=== PATIENT | male | born 1970 | race Caucasian/White ===

== ENCOUNTER 2017-06-18 00:19 | Emergency (ER) | payer MEDICAID ==
[2017-06-18] MEDS ORDERED: MVI, Adult with Vitamin K 10 ML, Thiamine 100 MG, Folic Acid 1 MG, Magnesium Sulfate 3 ... IV SCH ×5 (00:45)
[2017-06-18] MEDS ORDERED: Magnesium Sulfate (4.06 MEQ/ML) 1 GM/2 ML SDV ONE (00:51)
[2017-06-18] MEDS: LORazepam 2 MG/ML MDV IVPUSH PRN ×2 (01:30→06:33)
[2017-06-18] MEDS ORDERED: Sodium Chloride 0.9% 1,000 ML IV SCH (04:30)
--- NOTE | 2017-06-18 06:14 | EDM.PDOC ---
ED HPI GENERAL MEDICAL PROBLEM - General Chief Complaint: Drug or Alcohol Abuse Stated Complaint: ETOH intoxication Time Seen by Provider: 06/18/17 00:25 Source of Information: Reports: Patient, EMS History Limitations: Reports: Altered Mental Status - History of Present Illness INITIAL COMMENTS - FREE TEXT/NARRATIVE: Patient is a 47 year old man who is a chronic alcoholic who has had DT's in the past. He has been drinking non stop for the last 5 weeks. He is tremoring and is halucinating and he is afraid he may go into the DT's. He has no pain but he is throwing up some coffee ground emesis at times today. He is very drunk, otherwise and is not saying much else. Onset: Unknown/Unsure Duration: Getting Worse Location: Reports: Generalized Quality: Reports: Other (Withdrawing from alcohol.) Severity: Severe Improves with: Reports: None Worsens with: Reports: None Context: Reports: Other (Chronic Alcoholism and history or DT's.) Associated Symptoms: Reports: Confusion, Nausea/Vomiting - Related Data Allergies Allergy/AdvReac Type Severity Reaction Status Date / Time No Known Allergies Allergy Verified 06/18/17 02:25 Home Meds: Home Meds Disulfiram [Disulfiram] 250 mg PO DAILY 06/18/17 [History] FLUoxetine [PROzac] 20 mg PO BID 06/18/17 [History] Naltrexone [Naltrexone] 50 mg PO DAILY 06/18/17 [History] Sucralfate 1 gm PO ACBREAKFASTANDBED 06/18/17 [History] busPIRone HCl [Buspirone HCl] 10 mg PO BID 06/18/17 [History] Past Medical History Respiratory History: Reports: COPD Gastrointestinal History: Reports: GERD, Other (See Below) Other Gastrointestinal History: Chronic esophagael bleed. Psychiatric History: Reports: Addiction, Anxiety, Depression, Other (See Below) Other Psychiatric History: ETOH abuse - Past Surgical History GI Surgical History: Reports: Other (See Below) Other GI Surgeries/Procedures: Splenectomy in Social & Family History - Family History Family Medical History: Noncontributory - Tobacco Use Smoking Status *Q: Unknown Ever Smoked Second Hand Smoke Exposure: No - Caffeine Use Caffeine Use: Reports: Soda - Alcohol Use Days Per Week of Alcohol Use: 7 Number of Drinks Per Day: 12 Total Drinks Per Week: 84 Date of Last Drink: 06/17/17 - Recreational Drug Use Recreational Drug Use: No ED ROS GENERAL - Review of Systems Review Of Systems: See Below Constitutional: Reports: Other (Intoxicated with alcohol.) HEENT: Reports: Nosebleed Respiratory: Reports: No Symptoms Cardiovascular: Reports: No Symptoms Endocrine: Reports: No Symptoms GI/Abdominal: Reports: Hematemesis : Reports: No Symptoms Musculoskeletal: Reports: No Symptoms Skin: Reports: No Symptoms Neurological: Reports: Confusion, Tremors Psychiatric: Reports: Agitation, Anxiety, Confusion, Hallucinations Hematologic/Lymphatic: Reports: No Symptoms Immunologic: Reports: No Symptoms - Physical Exam Exam: See Below Exam Limited By: Altered Mental Status General Appearance: Anxious, Moderate Distress Eye Exam: Bilateral Eye: Normal Fundi, Normal Inspection, PERRL Ears: Normal External Exam, Normal Canal, Hearing Grossly Normal, Normal TMs Nose: Other (Dry blood on nostrils on admission.) Head Exam: Atraumatic, Normocephalic Neck: Normal Inspection, Supple, Non-Tender, Full Range of Motion Respiratory/Chest: No Respiratory Distress, Lungs Clear, Normal Breath Sounds, No Accessory Muscle Use, Chest Non-Tender Cardiovascular: Normal Peripheral Pulses, Regular Rate, Rhythm, No Edema, No Gallop, No JVD, No Murmur, No Rub GI/Abdominal: Normal Bowel Sounds, Soft, Non-Tender, No Organomegaly, No Distention, No Abnormal Bruit, No Mass Neuro Exam (Abbreviated): Inattentive, Confused, Disoriented Extremities: Normal Inspection, Normal Range of Motion, Non-Tender, No Pedal Edema, Normal Capillary Refill Psychiatric: Anxious Skin Exam: Warm, Dry, Intact, Normal Color, No Rash Course - Vital Signs Text/Narrative:: Uneventful ED course. He was managed on the CIWA protocol and with Lorazepam his tremors went away. An ICU bed became availabe in [facility] and he was transfered there for further treatment and evaluation. Last Recorded V/S: Last Vital Signs Temp 36.9 C 06/18/17 00:25 Pulse 107 H 06/18/17 00:25 Resp 16 06/18/17 00:25 BP 97/67 06/18/17 00:25 Pulse Ox 100 06/18/17 00:25 - Orders/Labs/Meds Orders: Active Orders 24 hr Category Date Time Status LORazepam [Ativan] Med 06/18/17 00:38 Active See Protocol IVPUSH Q4H PRN MVI, Adult with Vitamin K [Infuvite Adult] 10 ml Med 06/18/17 00:45 Active Thiamine [Vitamin B-1] 100 mg Folic Acid 1 mg Magnesium Sulfate [Magnesium Sulfate 50%] 3 gm Sodium Chloride 0.9% [Normal Saline] 1,000 ml IV ASDIRECTED Sodium Chloride 0.9% [Normal Saline] 1,000 ml Med 06/18/17 04:30 Active IV ASDIRECTED Medication Orders Multivitamins/Minerals 10 ml/Thiamine HCl 100 mg/ Folic Acid 1 mg/ Magnesium Sulfate 3 gm/ Sodium Chloride 1,017.2 mls @ 500 mls/hr IV ASDIRECTED CELIA Last Admin: 06/18/17 01:40 Dose: 500 mls/hr Sodium Chloride (Normal Saline) 1,000 mls @ 150 mls/hr IV ASDIRECTED CELIA Last Admin: 06/18/17 04:35 Dose: 150 mls/hr Lorazepam (Ativan) 0 mg IVPUSH Q4H PRN; Protocol PRN Reason: Withdrawal Symptoms Last Admin: 06/18/17 01:30 Dose: 3 mg Labs: Laboratory Tests 06/18/17 06/18/17 06/18/17 Range/Units 01:15 01:15 01:15 WBC 9.2 (4.0-11.0) K/uL RBC 4.28 L (4.50-6.50) M/uL Hgb 10.7 L (13.0-18.0) g/dL Hct 32.8 L (40.0-54.0) % MCV 77 (76-96) fL MCH 25.0 L (27.0-32.0) pg MCHC 32.6 (31.0-35.0) g/dL RDW 20.5 H (11.0-16.0) % Plt Count 112 L (150-400) K/uL MPV 10.6 H (6.0-10.0) fL Neut % (Auto) 83.5 H (45.0-70.0) % Lymph % (Auto) 12.5 L (20.0-40.0) % Dickens % (Auto) 3.7 (3.0-10.0) % Eos % (Auto) 0.0 L (1.0-5.0) % Baso % (Auto) 0.3 (0.0-0.5) % Neut # (Auto) 7.67 H (2.00-7.50) K/uL Lymph # (Auto) 1.15 L (1.50-4.00) K/uL Dickens # (Auto) 0.34 (0.20-0.80) K/uL Eos # (Auto) 0.00 L (0.04-0.40) K/uL Baso # (Auto) 0.03 (0.02-0.10) K/uL Sodium 140 (136-145) mmol/L Potassium 3.5 (3.5-5.1) mmol/L Chloride 94 L (98-107) mmol/L Carbon Dioxide 20.1 L (21.0-32.0) mmol/L Anion Gap 29.4 H (5.0-15.0) mmol/L BUN 28 H (8-26) mg/dL Creatinine 1.70 H (0.70-1.30) mg/dL Est Cr Clr Drug Dosing TNP Estimated GFR (MDRD) 44 L (>60) MLS/MIN BUN/Creatinine Ratio 16.5 (6-25) Glucose 165 H (74-100) mg/dL Calcium 8.3 L (8.5-10.1) mg/dL Total Bilirubin 0.7 (0.0-1.0) mg/dL AST 395 H (15-37) U/L ALT 239 H (12-78) U/L Alkaline Phosphatase 122 H (46-116) U/L Total Protein 7.4 (6.4-8.2) g/dL Albumin 3.5 (3.4-5.0) g/dL Globulin 3.9 (2.2-4.2) g/dL Albumin/Globulin Ratio 0.9 (0.8-2.0) TSH, Ultra Sensitive 1.318 (0.358-3.740) uIU/mL Urine Opiates Screen (NEGATIVE) Ur Oxycodone Screen (NEGATIVE) Urine Methadone Screen (NEGATIVE) U Acetaminophen Screen (NEGATIVE) Ur Barbiturates Screen (NEGATIVE) Ur Tricyclics Screen (NEGATIVE) Ur Phencyclidine Scrn (NEGATIVE) Ur Amphetamine Screen (NEGATIVE) U Methamphetamines Scrn (NEGATIVE) U Benzodiazepines Scrn (NEGATIVE) U Cocaine Metab Screen (NEGATIVE) U Marijuana (THC) Screen (NEGATIVE) Ethyl Alcohol 417.0 H* (0.0-0.0) mg/dL 06/18/17 Range/Units 02:15 WBC (4.0-11.0) K/uL RBC (4.50-6.50) M/uL Hgb (13.0-18.0) g/dL Hct (40.0-54.0) % MCV (76-96) fL MCH (27.0-32.0) pg MCHC (31.0-35.0) g/dL RDW (11.0-16.0) % Plt Count (150-400) K/uL MPV (6.0-10.0) fL Neut % (Auto) (45.0-70.0) % Lymph % (Auto) (20.0-40.0) % Dickens % (Auto) (3.0-10.0) % Eos % (Auto) (1.0-5.0) % Baso % (Auto) (0.0-0.5) % Neut # (Auto) (2.00-7.50) K/uL Lymph # (Auto) (1.50-4.00) K/uL Dickens # (Auto) (0.20-0.80) K/uL Eos # (Auto) (0.04-0.40) K/uL Baso # (Auto) (0.02-0.10) K/uL Sodium (136-145) mmol/L Potassium (3.5-5.1) mmol/L Chloride (98-107) mmol/L Carbon Dioxide (21.0-32.0) mmol/L Anion Gap (5.0-15.0) mmol/L BUN (8-26) mg/dL Creatinine (0.70-1.30) mg/dL Est Cr Clr Drug Dosing Estimated GFR (MDRD) (>60) MLS/MIN BUN/Creatinine Ratio (6-25) Glucose (74-100) mg/dL Calcium (8.5-10.1) mg/dL Total Bilirubin (0.0-1.0) mg/dL AST (15-37) U/L ALT (12-78) U/L Alkaline Phosphatase (46-116) U/L Total Protein (6.4-8.2) g/dL Albumin (3.4-5.0) g/dL Globulin (2.2-4.2) g/dL Albumin/Globulin Ratio (0.8-2.0) TSH, Ultra Sensitive (0.358-3.740) uIU/mL Urine Opiates Screen Negative (NEGATIVE) Ur Oxycodone Screen Negative (NEGATIVE) Urine Methadone Screen Negative (NEGATIVE) U Acetaminophen Screen Negative (NEGATIVE) Ur Barbiturates Screen Negative (NEGATIVE) Ur Tricyclics Screen Negative (NEGATIVE) Ur Phencyclidine Scrn Negative (NEGATIVE) Ur Amphetamine Screen Negative (NEGATIVE) U Methamphetamines Scrn Negative (NEGATIVE) U Benzodiazepines Scrn Negative (NEGATIVE) U Cocaine Metab Screen Negative (NEGATIVE) U Marijuana (THC) Screen Negative (NEGATIVE) Ethyl Alcohol (0.0-0.0) mg/dL Meds: Medications Generic Name Dose Route Start Last Admin Trade Name Freq PRN Reason Stop Dose Admin Multivitamins/Minerals 10 ml/ 1,017.2 mls @ 500 mls/hr 06/18/17 00:45 01:40 Thiamine HCl 100 mg/ Folic IV 500 mls/hr Acid 1 mg/ Magnesium Sulfate 3 ASDIRECTED CELIA Administration gm/ Sodium Chloride Sodium Chloride 1,000 mls @ 150 mls/hr 06/18/17 04:30 06/18/17 04:35 Normal Saline IV 150 mls/hr ASDIRECTED CELIA Administration Lorazepam 0 mg 06/18/17 00:38 06/18/17 01:30 Ativan IVPUSH 3 mg Q4H PRN Administration Withdrawal Symptoms Protocol Discontinued Medications Generic Name Dose Route Start Last Admin Trade Name Freq PRN Reason Stop Dose Admin Magnesium Sulfate Confirm 06/18/17 00:51 06/18/17 04:41 Magnesium Sulfate 50% Administered 06/18/17 00:52 Not Given Dose 3 gm .ROUTE .STK-MED ONE Departure - Departure Time of Disposition: 06:19 Disposition: DC/Tfer to Acute Hospital 02 Condition: Serious Clinical Impression: Alcohol withdrawal delirium, Alcohol abuse - Discharge Information Forms: ED Department Discharge - My Orders Last 24 Hours: My Active Orders 06/18/17 00:38 LORazepam [Ativan] See Protocol IVPUSH Q4H PRN 06/18/17 00:45 MVI, Adult with Vitamin K [Infuvite Adult] 10 ml Thiamine [Vitamin B-1] 100 mg Folic Acid 1 mg Magnesium Sulfate [Magnesium Sulfate 50%] 3 gm Sodium Chloride 0.9% [Normal Saline] 1,000 ml IV ASDIRECTED 06/18/17 04:30 Sodium Chloride 0.9% [Normal Saline] 1,000 ml IV ASDIRECTED - Assessment/Plan Last 24 Hours: My Active Orders 06/18/17 00:38 LORazepam [Ativan] See Protocol IVPUSH Q4H PRN 06/18/17 00:45 MVI, Adult with Vitamin K [Infuvite Adult] 10 ml Thiamine [Vitamin B-1] 100 mg Folic Acid 1 mg Magnesium Sulfate [Magnesium Sulfate 50%] 3 gm Sodium Chloride 0.9% [Normal Saline] 1,000 ml IV ASDIRECTED 06/18/17 04:30 Sodium Chloride 0.9% [Normal Saline] 1,000 ml IV ASDIRECTED
[2017-06-18] MEDS ORDERED: Ondansetron 4 MG/2 ML SDV ONE (06:47)
== END 2017-06-18 06:57 ==
LOC: LB.ED 00:19
DX: F10.231 Alcohol dependence with withdrawal delirium (principal); F10.221 Alcohol dependence with intoxication delirium; Z79.899 Other long term (current) drug therapy; J44.9 Chronic obstructive pulmonary disease, unspecified; K21.9 Gastro-esophageal reflux disease without esophagitis; K92.0 Hematemesis; R25.1 Tremor, unspecified; F41.9 Anxiety disorder, unspecified
CPT/HCPCS: 36415; 80053; 80307; 84443; 85025; 96365; 96366; 96375; 96376; 99285; A0425; A0429; G0480; J2060; J3411; J3475; J7040; J3490

== ENCOUNTER 2017-10-26 12:13 | Emergency (ER) | payer MEDICAID ==
--- NOTE | 2017-10-26 19:18 | ER ---
HISTORY OF PRESENT ILLNESS: A 47-year-old male here with complaints of not feeling well since waking up this morning. He has flu-like symptoms. He feels tired and achy. He has not been coughing. He tells me that he just feels tired. He has not been running any high fevers to his knowledge. He does have some mild sore throat symptoms and a little bit of head congestion. No problems with abdominal pain, nausea, or vomiting. OBJECTIVE: GENERAL APPEARANCE: The patient is awake and alert, in no obvious distress. VITAL SIGNS: Reviewed. They are normal at this time. HEENT: Ears, TMs are dull, otherwise normal. Nares are patent. Oral mucous membranes are moist. Posterior pharynx shows drainage with minimal irritation. NECK: Supple. LUNGS: Clear. CARDIAC: Heart sounds distinct without murmurs. ABDOMEN: Soft and nontender. Bowel sounds are present. SKIN: Warm and dry. LAB AND X-RAY: Rapid flu was negative. CBC shows a normal white count, but neutrophils are climbing at 90.1. All the viral markers are low. Comprehensive metabolic panel is unremarkable, and a rapid flu is negative. DIAGNOSIS: Sinusitis based on the left shift. TREATMENT PLAN: Amoxicillin will be started for 10 days. [id number] medications should be used as needed. Activity should be minimal and as tolerated. He is to increase his liquid intake and followup as p.r.n. CRS/MODL /[id number]
== END 2017-10-26 13:24 | disposition home or self-care (01) ==
LOC: LB.ED 12:13
DX: J32.9 Chronic sinusitis, unspecified (principal)
CPT/HCPCS: 36415; 80053; 85025; 87804; 99283